=== PATIENT | female | born 1950 | race African-American/Black ===

== ENCOUNTER 2018-06-12 10:11 | Day surgery (SDC) | payer MEDICARE ==
[~2018-06-12] VITALS: Ht 165.1 cm; Wt 64.5 kg
[2018-06-12] MEDS ORDERED: GELATIN SPONGE,ABSORBABLE 12-7MM SPONGE ONE (11:14)
[2018-06-12] MEDS ORDERED: BACITRACIN 15GM TUBE TOP ONE (11:15)
[2018-06-12] MEDS ORDERED: LIDOCAINE HCL 1% 20ML VIAL (Pyxis) INJ ONE (11:15)
[2018-06-12] MEDS ORDERED: THROMBIN (BOVINE) 5000 UNITS/VIAL TOP ONE (11:15)
[2018-06-12] MEDS ORDERED: BUPIVACAINE HCL/PF 0.5% (5MG/ML) 10ML ONE (11:16)
[2018-06-12] MEDS ORDERED: HEPARIN SODIUM 1,000 UNIT/1ML VIAL IV ONE (11:16)
[2018-06-12 11:59] LABS: BASOPHILS % 1.9 % (0.0-2.0); EOSINOPHILS % 1.2 % (0.0-5.0); HEMATOCRIT. 33.5 % (36.0-48.0); HEMOGLOBIN. 10.9 g/dL (12.0-16.0); MEAN CORPUSCULAR HEMOGLOBIN 29.8 pg (28.0-32.0); MEAN CORPUSCULAR VOLUME 91.4 fL (81.0-99.0); MEAN PLATELET VOLUME 8.4 fl (7.4-10.4); MONOCYTES % 10.1 % (2.0-8.0); NEUTROPHILS % 76.8 % (40.0-76.0); PLATELET 292 x1000/uL (130-400); RED BLOOD CELL COUNT 3.67 mill/uL (4.2-5.4); RED CELL DISTRIBUTION WIDTH 16.1 % (11.6-14.6)
[2018-06-12] MEDS ORDERED: SUCR500T PO (12:14)
[2018-06-12] MEDS ORDERED: AMLO5TAB88 PO (12:14)
[2018-06-12 12:27] LABS: INR 1.1; PARTIAL THROMBOPLASTIN TIME 33.6 sec (23.4-31.0); PROTHROMBIN TIME 11.5 sec (9.1-11.1)
[2018-06-12] MEDS ORDERED: BACITRACIN 50,000 UNITS/VIAL ONE (12:39)
[2018-06-12] MEDS ORDERED: PROPOFOL 200MG/20ML VIAL IV ONE (13:12)
[2018-06-12] MEDS ORDERED: LIDOCAINE HCL/PF 1% 10 MG/ML 5ML VIAL ONE (13:15)
[2018-06-12] MEDS ORDERED: CEFAZOLIN SODIUM 1000MG/VIAL ONE (13:35)
[2018-06-12] MEDS ORDERED: SODIUM CHLORIDE 0.9% 10ML VIAL ONE (13:35)
[2018-06-12] MEDS ORDERED: HEPARIN 1000 UNITS/ML 10ML ONE (13:54)
[2018-06-12] MEDS ORDERED: HEPARIN 100 UNITS/1 ML VIAL IVF PRN (15:15)
[2018-06-12] MEDS ORDERED: SODIUM CHLORIDE 0.9% 500 ML IV NR (15:43)
[2018-06-12] MEDS ORDERED: HEPARIN SODIUM 1,000 UNIT/1ML VIAL IV NR (16:00)
== END 2018-06-12 16:00 | disposition home or self-care (01) ==
LOC: OR 10:11
PROVIDERS: ATTEND Surgery Vascular Surgery
DX: N18.9 Chronic kidney disease, unspecified (principal); I10 Essential (primary) hypertension; Z79.899 Other long term (current) drug therapy; Z98.890 Other specified postprocedural states; Z88.0 Allergy status to penicillin; Z88.8 Allergy status to other drugs, medicaments and biological substances
CPT/HCPCS: 36415; 36821; 80048; 85025; 85610; 85730; 93005; A4216; J0690; J1644; J3490; J2704; J7040

== ENCOUNTER 2018-11-21 10:02 | Day surgery (SDC) | payer MEDICARE ==
[~2018-11-21] VITALS: Ht 165.1 cm; Wt 63.0 kg
[~2018-11-21 10:02] MED LIST: AMLO5TAB88 PO; SUCR500T PO
[2018-11-21] MEDS ORDERED: LIDOCAINE HCL 1% 20ML VIAL (Pyxis) INJ ONE (11:48)
[2018-11-21] MEDS ORDERED: BACITRACIN 15GM TUBE TOP ONE (11:48)
[2018-11-21] MEDS ORDERED: HEPARIN SODIUM 1,000 UNIT/1ML VIAL IV ONE (11:49)
[2018-11-21] MEDS ORDERED: THROMBIN (BOVINE) 5000 UNITS/VIAL TOP ONE (11:49)
[2018-11-21] MEDS ORDERED: BUPIVACAINE HCL/PF 0.5% (5MG/ML) 10ML ONE ×2 (11:49→11:50)
[2018-11-21] MEDS ORDERED: NORMAL SALINE 0.9% 10 ML SYR ONE (11:50)
[2018-11-21] MEDS ORDERED: BACITRACIN 50,000 UNITS/VIAL ONE (11:50)
[2018-11-21 12:14] LABS: HEMATOCRIT 29.5 % (36.0-48.0); HEMOGLOBIN 9.9 g/dL (12.0-16.0); MEAN CORPUSCULAR HEMOGLOBIN 29.8 pg (28.0-32.0); MEAN CORPUSCULAR VOLUME 88.5 fL (81.0-99.0); PLATELET 287 x1000/uL (130-400); RED BLOOD CELL COUNT 3.34 mill/uL (4.2-5.4); RED CELL DISTRIBUTION WIDTH 16.1 % (11.6-14.6)
[2018-11-21 12:36] LABS: INR 1.1; PARTIAL THROMBOPLASTIN TIME 33.7 sec (23.4-31.0); PROTHROMBIN TIME 11.4 sec (9.6-11.0)
[2018-11-21] MEDS ORDERED: SODIUM CHLORIDE 0.9% 500 ML IV NR (13:00)
[2018-11-21] MEDS ORDERED: PROPOFOL 200MG/20ML VIAL IV ONE ×2 (13:18→14:08)
[2018-11-21] MEDS ORDERED: FENTANYL CITRATE/PF 50MCG/ML 2ML VIAL ONE (13:18)
[2018-11-21] MEDS ORDERED: MIDAZOLAM HCL 2 MG/2 ML VIAL ONE (13:19)
[2018-11-21] MEDS ORDERED: ONDANSETRON HCL 4MG/2ML INJ ONE (13:24)
[2018-11-21] MEDS ORDERED: DEXAMETHASONE 4MG/ML 1ML VIAL ONE (13:24)
[2018-11-21] MEDS ORDERED: HYDROMORPHONE HCL/PF 2MG/ML CPJ IV PRN (14:15)
[2018-11-21] MEDS ORDERED: LABETALOL HCL 20MG/4ML CARPUJECT IV PRN (14:15)
[2018-11-21] MEDS ORDERED: ONDANSETRON HCL 4MG/2ML INJ IV PRN (14:15)
[2018-11-21] MEDS ORDERED: MEPERIDINE HCL/PF 25MG/ML CPJ IV PRN (14:15)
[2018-11-21] MEDS ORDERED: EPHEDRINE SULFATE 50MG/ML VIAL ONE (14:24)
[2018-11-21] MEDS ORDERED: SODIUM CHLORIDE 0.9% 10ML VIAL ONE (14:24)
[2018-11-21 15:12] VITALS: BP 116/74
== END 2018-11-21 17:20 | disposition home or self-care (01) ==
LOC: OR 10:02
PROVIDERS: ATTEND Surgery Vascular Surgery
DX: T82.858A Stenosis of other vascular prosthetic devices, implants and grafts, initial encounter (principal); Y83.2 Surgical operation with anastomosis, bypass or graft as the cause of abnormal reaction of the patient, or of later complication, without mention of misadventure at the time of the procedure; Y92.89 Other specified places as the place of occurrence of the external cause; T82.528A Displacement of other cardiac and vascular devices and implants, initial encounter; I12.0 Hypertensive chronic kidney disease with stage 5 chronic kidney disease or end stage renal disease; N18.6 End stage renal disease; Z99.2 Dependence on renal dialysis
CPT/HCPCS: 36415; 36832; 37607; 80048; 85027; 85610; 85730; 88300; 93005; J1100; J1170; J1644; J2250; J2405; J2704; J3010; J3490; J7040